=== PATIENT | male | born 1960 | race Caucasian/White ===

== ENCOUNTER 2020-06-29 10:56 | Observation (INO) | payer MEDICARE, MEDICAID ==
[~2020-06-29] VITALS: Ht 177.8 cm; Wt 133.4 kg
[~2020-06-29 10:56] MED LIST: AMLO-211 PO; CYCL-259 PO; GABA600T7 PO; LISI-170 PO; LISI1TAB20 PO
[2020-06-29] MEDS ORDERED: PREG25CA PO (11:10)
[2020-06-29] MEDS ORDERED: METF500T17 PO (11:10)
[2020-06-29] MEDS ORDERED: SODIUM CHLORIDE 0.9% 1,000ML IVBOLUS ONE (11:30)
[2020-06-29] MEDS ORDERED: SODIUM CHLORIDE FLUSH 10ML SYR IVF ONE (11:30)
[2020-06-29 11:47] LABS: BASOPHILS % (AUTO) 1 % (0-1); EOSINOPHILS % (AUTO) 1 % (1-7); LYMPHOCYTES % (AUTO) 24 % (22-44); MEAN CORPUSCULAR HEMOGLOBIN 30.1 pg (27.5-34.5); MEAN CORPUSCULAR HGB CONC 33.8 g/dL (33.2-36.2); MEAN PLATELET VOLUME 9.2 fL (7.4-10.4); MONOCYTES % (AUTO) 6 % (2-9); NEUTROPHILS % (AUTO) 69 % (42-75); PLATELET COUNT 256 x10^3/uL (130-400); RED BLOOD COUNT 4.98 x10^6/uL (4.38-5.82)
[2020-06-29 11:48] LABS: MD NO
[2020-06-29 11:57] LABS: ALANINE AMINOTRANSFERASE 25 U/L (12-78); ALBUMIN 3.7 g/dL (3.4-5.0); ANION GAP 4 mmol/L (5-15); CALCIUM 8.7 mg/dL (8.5-10.1); CHLORIDE 107 mmol/L (98-107); CREATININE 0.89 mg/dL (0.7-1.3)
[2020-06-29 12:01] LABS: ALKALINE PHOSPHATASE 63 U/L (45-117); BILIRUBIN,TOTAL 0.5 mg/dL (0.2-1.0); TOTAL PROTEIN 6.8 g/dL (6.4-8.2); TROPONIN I < 0.015 ng/mL (0.000-0.045)
[2020-06-29] MEDS ORDERED: NITROGLYCERIN 0.4 MG BOTTLE (25 TABS) SL PRN (13:00)
[2020-06-29] MEDS ORDERED: morphine SULFATE 10 MG/ML, 1ML IVPush PRN (13:00)
[2020-06-29] MEDS ORDERED: OXYcodone IR 5MG TABLET PO PRN (13:00)
[2020-06-29] MEDS ORDERED: ONDANSETRON 2MG/ML, 2ML IVPush PRN (13:00)
[2020-06-29] MEDS ORDERED: DOCUSATE 100 MG CAPSULE PO PRN (13:00)
[2020-06-29] MEDS ORDERED: ACETAMINOPHEN 325 MG TABLET PO PRN (13:00)
[2020-06-29] MEDS ORDERED: ENALAPRILAT 1.25 MG/ML, 2ML IVPush PRN (13:00)
[2020-06-29] MEDS ORDERED: BISACODYL 10 MG SUPP PR PRN (13:00)
[2020-06-29] MEDS ORDERED: ONDANSETRON ODT 4 MG PO PRN (13:00)
[2020-06-29] MEDS ORDERED: PROMETHAZINE 25 MG/ML, 1ML IM PRN (13:00)
[2020-06-29] MEDS ORDERED: POLYETHYLENE GLYCOL 17 GM PACKET PO PRN (13:00)
[2020-06-29] MEDS ORDERED: POTASSIUM CHLORIDE 20 MEQ TAB.ER.PRT PO ONE ×2 (13:30→18:00)
[2020-06-29 13:34] LABS: FREE T4 (FREE THYROXINE) 0.9 ng/dL (0.76-1.46)
[2020-06-29 14:25] VITALS: BP 151/88
[2020-06-29 14:40] VITALS: BP 155/88
[2020-06-29] MEDS: PREGABALIN 25 MG CAPSULE PO SCH ×2 (16:00→20:49)
[2020-06-29 16:54] LABS: TROPONIN I < 0.015 ng/mL (0.000-0.045)
[2020-06-29] MEDS: INSULIN LISPRO 100 UNITS/ML, PEN SQ-INSULIN SCH ×2 (17:00→20:49)
[2020-06-29] MEDS: HEPARIN 5,000 UNITS/ML, 1ML SQ SCH ×2 (17:58→20:49)
[2020-06-29 19:47] VITALS: BP 127/79
[2020-06-29] MEDS: PANTOPRAZOLE 40 MG IV IVPush SCH (20:48)
[2020-06-29] MEDS: FLUTICASONE NASAL SPRAY 16GM NAS SCH (22:03)
[2020-06-30 00:05] LABS: TROPONIN I < 0.015 ng/mL (0.000-0.045)
[2020-06-30 00:41] VITALS: BP 136/81
[2020-06-30] MEDS: HEPARIN 5,000 UNITS/ML, 1ML SQ SCH ×2 (05:50→14:21)
[2020-06-30] MEDS ORDERED: ASPIRIN 325 MG TABLET EC PO SCH (06:00)
[2020-06-30 06:14] LABS: CHLORIDE 108 mmol/L (98-107)
[2020-06-30 06:15] LABS: BASOPHILS % (AUTO) 1 % (0-1); EOSINOPHILS % (AUTO) 2 % (1-7); LYMPHOCYTES % (AUTO) 30 % (22-44); MEAN CORPUSCULAR HEMOGLOBIN 30.1 pg (27.5-34.5); MEAN CORPUSCULAR HGB CONC 33.1 g/dL (33.2-36.2); MEAN PLATELET VOLUME 9.8 fL (7.4-10.4); MONOCYTES % (AUTO) 7 % (2-9); NEUTROPHILS % (AUTO) 60 % (42-75); PLATELET COUNT 305 x10^3/uL (130-400); RED BLOOD COUNT 5.11 x10^6/uL (4.38-5.82)
[2020-06-30 06:21] LABS: ALANINE AMINOTRANSFERASE 27 U/L (12-78); ALBUMIN 3.8 g/dL (3.4-5.0); ALKALINE PHOSPHATASE 56 U/L (45-117); ANION GAP 5 mmol/L (5-15); BILIRUBIN,TOTAL 0.7 mg/dL (0.2-1.0); CALCIUM 8.8 mg/dL (8.5-10.1); CHOL/HDL RATIO 3.2; CHOLESTEROL, TOTAL 113 mg/dL (140-239); HDL CHOL % 31 % (26-37); HDL CHOLESTEROL (DIRECT) 35 mg/dL (40-60); LDL CHOLESTEROL,CALCULATED 34 mg/dL (54-169); TOTAL PROTEIN 7.1 g/dL (6.4-8.2); TRIGLYCERIDES 218 mg/dL (50-200); VLDL CHOLESTEROL 44 mg/dL (0-25)
[2020-06-30 06:27] LABS: MD NO
[2020-06-30 07:32] VITALS: BP 147/91
[2020-06-30] MEDS: INSULIN LISPRO 100 UNITS/ML, PEN SQ-INSULIN SCH ×3 (07:50→16:19)
[2020-06-30] MEDS: PANTOPRAZOLE 40 MG IV IVPush SCH (07:53)
[2020-06-30] MEDS: PREGABALIN 25 MG CAPSULE PO SCH ×2 (07:53→16:20)
[2020-06-30] MEDS: FLUTICASONE NASAL SPRAY 16GM NAS SCH (07:55)
[2020-06-30] MEDS ORDERED: REGADENOSON 0.4 MG/5 ML SYRINGE ONE (08:36)
[2020-06-30] MEDS ORDERED: LISINOPRIL 20 MG TABLET PO SCH (09:00)
[2020-06-30 13:22] VITALS: BP 145/83
[2020-06-30] MEDS ORDERED: OMEP-110 PO (14:27)
== END 2020-06-30 16:45 | disposition home or self-care (01) ==
LOC: ED 14:21 → INTOOBSV 14:22 → EDIP 14:22 → 5SO 15:21 → DCLOUNGE 06-30 16:30
PROVIDERS: ADMIT Internal Medicine; ATTEND Internal Medicine
DX: R07.89 Other chest pain (principal); K44.9 Diaphragmatic hernia without obstruction or gangrene; I10 Essential (primary) hypertension; K21.9 Gastro-esophageal reflux disease without esophagitis; E78.5 Hyperlipidemia, unspecified; E66.01 Morbid (severe) obesity due to excess calories; E11.65 Type 2 diabetes mellitus with hyperglycemia; Z79.899 Other long term (current) drug therapy; Z87.891 Personal history of nicotine dependence; Z86.718 Personal history of other venous thrombosis and embolism
CPT/HCPCS: 36415; 71046; 78452; 80053; 80061; 82962; 83036; 83735; 83880; 84439; 84443; 84484; 85025; 93005; 93017; 93306; 96361; 96372; 96374; 96376; 99285; A9502; C9113; G0378; J1644; J2785; J7030